=== PATIENT | male | born 1980 | race African-American/Black ===

== ENCOUNTER 2017-01-08 16:38 | Emergency (ER) | payer SELFPAY ==
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
[~2017-01-08 16:38] MED LIST: IBUPROFEN800 MG PO; NAPROXEN PO
== END 2017-01-08 18:19 | disposition home or self-care (01) ==
LOC: CFTX 16:38
DX: S13.4XXA Sprain of ligaments of cervical spine, initial encounter (principal); S33.5XXA Sprain of ligaments of lumbar spine, initial encounter; S23.3XXA Sprain of ligaments of thoracic spine, initial encounter; F41.9 Anxiety disorder, unspecified; F17.210 Nicotine dependence, cigarettes, uncomplicated; V43.62XA Car passenger injured in collision with other type car in traffic accident, initial encounter
CPT/HCPCS: 72040; 72072; 72100; 99284

== ENCOUNTER 2017-02-23 08:36 | Emergency (ER) | payer OTHER, MEDICARE ==
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
== END 2017-02-23 11:19 | disposition home or self-care (01) ==
LOC: CED 08:36
DX: S13.4XXA Sprain of ligaments of cervical spine, initial encounter (principal); F41.9 Anxiety disorder, unspecified; F17.210 Nicotine dependence, cigarettes, uncomplicated; V43.52XA Car driver injured in collision with other type car in traffic accident, initial encounter; Y92.410 Unspecified street and highway as the place of occurrence of the external cause
CPT/HCPCS: 72040; 72170; 99284